=== PATIENT | female | born 1940 | race Asian ===

== ENCOUNTER 2018-12-23 05:49 | Day surgery (SDC) | payer MEDICARE, OTHER ==
--- NOTE | 2018-09-08 13:07 | PREOPHP ---
DATE OF ADMISSION: 09/09/2018 HISTORY OF PRESENT ILLNESS: This 78-year-old patient is admitted for elective cataract surgery of th e left eye. The patient has had decreased vision for the past 8 or 9 months' time involving both eye s without any prior history of eye disease or injury. The patient's systemic history is positive for ema-ufeyzpu-ymvgilitt diabetes mellitus, systemic hypertension and hypercholesterolemia. CURRENT MEDICATIONS: Includes: 1. Tradjenta. 2. Metoprolol. 3. Pravastatin. ALLERGIES: ANTIBIOTICS but cannot specify which antibiotic. PHYSICAL EXAMINATION: The visual acuity with best correction is 20/50 in both eyes. Slit lamp exami nation reveals anterior cortical and nuclear sclerotic cataracts present in both eyes. Applanation t onometry 17 mmHg. Examination of the retina is within normal limits. DIAGNOSIS: Posterior subcapsular cataract, left eye. PLAN: Cataract extraction with lens implant, left eye. The risks and alternatives to the surgery peterson ve been discussed with the patient as well as the hope for improvement of visual acuity leading to a greater ability to perform activities of daily living. The patient understands this and agrees to pr oceed with surgery. Dictated By: BRIT GRIFFITH/MAGUI Conf#: [id number] DID#: [id number]
--- NOTE | 2018-12-22 13:22 | PREOPHP ---
DATE OF ADMISSION: 12/23/2018 HISTORY OF PRESENT ILLNESS: This 78-year-old patient is admitted for elective cataract surgery of th e left eye. The patient has had decreased vision for the past year's time, which has been progressiv e and is causing the patient had visual difficulties. The patient has a 6-year history of non-insuli n-dependent diabetes mellitus. The patient also has systemic hypertension and hypercholesterolemia. ALLERGIES: THE PATIENT IS ALLERGIC TO PENICILLIN. CURRENT MEDICATIONS: Include: 1. Tradjenta. 2. Metoprolol. 3. Losartan. 4. Pravastatin. 5. Olopatadine. 6. Omeprazole. 7. Ventolin. PHYSICAL EXAMINATION: The visual acuity with best correction is 20/50 in the right eye and 20/70 in the left eye. Slit lamp examination reveals anterior cortical and nuclear sclerotic cataracts presen t in both eyes. Applanation tonometry is 18 mmHg. Examination of the retina is within normal limits without evidence of diabetic retinopathy. DIAGNOSIS: Cortical and nuclear cataracts in both eyes. PLAN: Cataract extraction with lens implant, left eye. The risks and alternatives to the surgery peterson ve been discussed with the patient as well as the hope for improvement of visual acuity leading to gr eater ability to perform activities of daily living. The patient understands this and agrees to proc eed with surgery. Dictated By: BRIT GRIFFITH/MAGUI Conf#: [id number] DID#: [id number]
[~2018-12-23] VITALS: Ht 157.5 cm; Wt 64.0 kg
[2018-12-23] VITALS (9 sets, daily range): BP systolic 134–190; BP diastolic 70–93; PULSE 70–77; RESP 11–23; Ht 157.5 cm; Wt 64.0 kg
[2018-12-23] MEDS ORDERED: TROPICAMIDE 1% 15 ML OPH OPER SCH (06:30)
[2018-12-23] MEDS ORDERED: DICLOFENAC 0.1% 2.5 ML OPH OPER SCH (06:30)
[2018-12-23] MEDS ORDERED: MOXIFLOXACIN 0.5% 3 ML OPH OPER SCH (06:30)
[2018-12-23] MEDS ORDERED: CYCLOPENTOLATE/PHENYLEPH 2 ML OPH OPER SCH (06:30)
[2018-12-23] MEDS ORDERED: SOD CHLORIDE 0.9% 1,000 ML IV SCH (06:30)
[2018-12-23] MEDS ORDERED: LIDOCAINE 4% (MPF) 5 ML INJ ONE (06:53)
[2018-12-23] MEDS ORDERED: CEFAZOLIN 1 GM INJ ONE (06:53)
[2018-12-23] MEDS ORDERED: CARBACHOL 0.01% 1.5 ML OPH INJ ONE (06:53)
[2018-12-23] MEDS ORDERED: DEXAMETHASONE 4 MG/ML 1 ML INJ ONE (06:53)
[2018-12-23] MEDS ORDERED: GENTAMICIN 80 MG INJ ONE (06:53)
[2018-12-23] MEDS ORDERED: TETRACAINE 0.5% 4 ML OPH ONE (06:53)
[2018-12-23] MEDS ORDERED: EPINEPHrine 1 MG INJ ONE (06:54)
--- NOTE | 2018-12-23 07:00 | PREAC ---
Date/Time of Note Date/Time of Note DATE: 12/23/18 TIME: 06:58 Anesthesia Eval and Record Evaluation Time Pre-Procedure Interview DATE: 12/23/18 TIME: 06:58 Age 78 Sex female NPO: 8 hrs Preoperative diagnosis left cataract Planned procedure left cataract ext with IOL Past Medical History Past Medical History: Includes Cardio: HTN, Dyslipidemia Endo: Diabetes Musculoskeletal: Osteoarthritis Surgery & Anesthesia Issues No known issue Meds Anticoagulation: No Beta Eldon within 24 hr: Yes Current Medications Diclofenac Sodium (Voltaren 0.1%) 1 drop Q5 MIN X 3 OPER Last administered on 12/23/18at 06:06; Admin Dose 1 DROP; Start 12/23/18 at 06:30; Stop 12/23/18 at 18:00 Tropicamide (Mydriacyl 1%) 1 drop Q5 MIN X3 OPER Last administered on 12/23/18at 06:06; Admin Dose 1 DROP; Start 12/23/18 at 06:30; Stop 12/23/18 at 18:00 Moxifloxacin HCl (Vigamox) 1 drop Q5 MIN X 3 OPER Last administered on 12/23/18at 06:07; Admin Dose 1 DROP; Start 12/23/18 at 06:30; Stop 12/23/18 at 18:00 Cyclopentolate/ Phenylephrine (Cyclomydril Oph 2 ml) 1 drop Q5 MIN X 3 OPER Last administered on 12/23/18at 06:06; Admin Dose 1 DROP; Start 12/23/18 at 06:30; Stop 12/23/18 at 18:00 Sodium Chloride 1,000 ml @ 25 mls/hr Q24H IV ; Start 12/23/18 at 06:30; Stop 12/23/18 at 18:00 Meds reviewed: Yes Allergies Coded Allergies: No Known Drug Allergies (Verified Allergy, Unknown, 12/22/18) Allergies Reviewed: Yes Labs/Studies Labs Reviewed: Reviewed by anesthesiologist test: N/A Studies: ECG, CXR Pre-procedure Exam Last vitals Vital Signs Date Temp Pulse Resp B/P (MAP) Pulse Ox O2 O2 Flow FiO2 Time Delivery Rate 12/23/18 98.6 77 16 169/74 97 Room Air 06:38 (105) Airway: Adequate mouth opening, Adequate thyromental dist Mallampati: Mallampati II Teeth: Normal Lung: Normal Heart: Normal ASA Physical Status ASA physical status: 2 Emergency: None Planned Anesthetic General/MAC: MAC Planned Pain Management Parenteral pain med Pre-operative Attestations Prior to commencing anesthesia and surgery, the patient was re-evaluated, there was verification of: *The patient's identity *The results of appropriate recent lab work and preoperative vital signs *The above evaluation not changing prior to induction *Anesthetic plan, risk benefits, alternative and complications discussed with patient/family; questions answered; patient/family understands, accepts and wishes to proceed. MEHRAN FABIAN Dec 23, 2018 07:00
[2018-12-23] MEDS ORDERED: PRAV40TA76 PO (07:09)
[2018-12-23] MEDS ORDERED: LOSA1TAB28 PO (07:10)
[2018-12-23] MEDS ORDERED: METO-319 PO (07:10)
[2018-12-23] MEDS ORDERED: LINA5TAB PO (07:11)
[2018-12-23] MEDS ORDERED: PROPOFOL 20 ML ONE (07:22)
[2018-12-23] MEDS ORDERED: NA HYALURONATE/CHONDROITIN 0.5 ML SYG LEFT EYE ONE (07:50)
[2018-12-23] MEDS ORDERED: LIDOCAINE 2% (SDV) 5 ML INJ ONE (08:10)
--- NOTE | 2018-12-23 08:17 | PAC ---
Date/Time of Note Date/Time of Note DATE: 12/23/18 TIME: 08:17 Post-Anesthesia Notes Post-Anesthesia Note Last documented vital signs Vital Signs Date Temp Pulse Resp B/P (MAP) Pulse Ox O2 O2 Flow FiO2 Time Delivery Rate 12/23/18 98.6 77 16 169/74 97 Room Air 0817 (105) Activity: WNL Respiratory function: WNL Cardiovascular function: WNL Mental status: Baseline Pain reasonably controlled: Yes Hydration appropriate: Yes Nausea/Vomiting absent: Yes MEHRAN FABIAN Dec 23, 2018 08:17
[2018-12-23] MEDS ORDERED: NA HYALURONATE/CHONDROITIN 0.5 ML SYG ONE (08:18)
[2018-12-23] MEDS ORDERED: LABETALOL HCL 20MG INJ ONE (08:26)
[2018-12-23] MEDS ORDERED: hydrALAzine 20 MG INJ IV PRN (08:30)
[2018-12-23] MEDS ORDERED: FENTAnyl 50 MCG/ML VIAL IV PRN ×3 (08:30)
[2018-12-23] MEDS ORDERED: LABETALOL HCL 20MG INJ IV PRN (08:30)
[2018-12-23] MEDS ORDERED: MIDAZOLAM 1 MG/ML 2 ML INJ IV PRN (08:30)
[2018-12-23] MEDS ORDERED: DIPHENHYDRAMINE 50 MG INJ IV PRN (08:30)
[2018-12-23] MEDS ORDERED: ONDANSETRON 4 MG INJ IV PRN (08:30)
[2018-12-23] MEDS ORDERED: ALBUTEROL 0.083% (NEB) 2.5 MG/3 ML AMP HHN PRN (08:30)
[2018-12-23] MEDS ORDERED: EPHEDrine SULFATE 50 MG/5 ML SYG IV PRN (08:30)
[2018-12-23] MEDS ORDERED: OXYCODONE/ACETAMINOPHEN (5/325) TAB PO PRN ×2 (08:30)
--- NOTE | 2018-12-23 08:51 | OPR ---
DATE OF OPERATION: 12/23/2018 PREOPERATIVE DIAGNOSIS: Nuclear sclerotic cataract, left eye. POSTOPERATIVE DIAGNOSIS: Nuclear sclerotic cataract, left eye. OPERATION PERFORMED: Cataract extraction with lens implant, left eye. SURGEON: Brit Williamson M.D. ANESTHESIOLOGIST: Dr. Ortega. ANESTHESIA: Local standby. PROCEDURE: The patient was brought to the operating room and placed on the table with an IV in place and the patient attached to an youth nutritional monitor. Oxygen was given via face mask. After some intravenous sedation was administered, local anesthesia was given using Xylocaine 2% with epinephrine, mixed with Marcaine 0.5%. This was given in a lid block and retrobulbar injection. The patient was then prepped and draped in the usual sterile manner. A wire lid speculum was inserted between the lids of the left eye. A Superblade was used to enter th e anterior chamber at the corneoscleral limbus at the 10:30 o'clock position. A separate incision wa s made using a 3.0-mm keratome which entered the corneoscleral junction at the 12 o'clock position. Through this 3-mm opening, an irrigating cystotome was introduced into the anterior chamber. The shreya mber was filled with Viscoat and an anterior capsulotomy was performed. Balanced salt solution was t hen used for hydrodissection of the lens. A phacoemulsification handpiece was then brought into the field and introduced into the anterior chamber. The lens nucleus was emulsified using a deep groove and cracking the nucleus into quadrants. Following this, each quadrant was aspirated and emulsified at the pupillary margin. After this was completed, the irrigation/aspiration handpiece was brought to the field, introduced in to the posterior chamber, and the lens cortical material was removed. When this was completed, addit ional Viscoat was injected into the anterior and posterior chambers. The 3-mm opening had its internal lips enlarged, and then the posterior chamber intraocular lens bill uring 20.0 diopters ([employer] Model LI61AO) was then injected into the posterior c hamber using the lens injector system. After the leading haptic was introduced into the capsular bag and the lens optic was present in the center of the eye, the injector was removed and the trailing h aptic was grasped with non-toothed forceps and introduced into the capsular fold superiorly. A [place] ey hook was then used to rotate the intraocular lens so that the lips were oriented in the horizontal meridian. One 10-0 nylon suture was placed across the wound. Prior to tying, the irrigation/aspiration handpiece was reintroduced into the anterior chamber to rem ove the Viscoat. Miochol was instilled to constrict the pupil, and then the 10-0 nylon suture was ti ed. The ends were cut short and then the knot was buried. Then, 0.5 mL of dexamethasone and 0.5 mL of Ancef were injected into the sub-Tenon space in the infer ior fornix. Ciloxan drops were then placed on the surface of the eye. The speculum was removed and a patch was applied. The patient then left the operating room in satisfactory condition. Dictated By: BRIT GRIFFITH/MAGUI Conf#: [id number] DID#: [id number] CC: BRIT WILLIAMSON MD;*EndCC*
== END 2018-12-23 09:55 | disposition home or self-care (01) ==
LOC: SDS 05:49
PROVIDERS: ATTEND Ophthalmology
DX: H25.012 Cortical age-related cataract, left eye (principal); I10 Essential (primary) hypertension; E11.9 Type 2 diabetes mellitus without complications; E78.5 Hyperlipidemia, unspecified
CPT/HCPCS: 66984; 82962; J0171; J0690; J1100; J1580; J2405; V2632